=== PATIENT | female | born 1995 | race Caucasian/White ===

== ENCOUNTER 2020-06-25 17:37 | Emergency (ER) | payer OTHER ==
[~2020-06-25] VITALS: Ht 160 cm; Wt 55.3 kg
[2020-06-25 18:37] VITALS: BP 122/67; Ht 160 cm; Wt 55.3 kg
== END 2020-06-25 19:47 | disposition left against medical advice (07) ==
LOC: ED 17:37
DX: O26.891 Other specified pregnancy related conditions, first trimester (principal); N93.9 Abnormal uterine and vaginal bleeding, unspecified; Z13.9 Encounter for screening, unspecified; Z3A.09 9 weeks gestation of pregnancy